=== PATIENT | male | born 1970 | race Caucasian/White ===

== ENCOUNTER → 2021-02-22 07:10 | Outpatient (CLI) | payer BC, SELFPAY ==
[2021-02-22 16:22] LABS: SARS-CoV-2 RNA PCR Negative
== END ==
PROVIDERS: Visit Provider Nurse Practitioner Family
DX: R68.89 Other general symptoms and signs (principal); Z20.822 Contact with and (suspected) exposure to COVID-19
CPT/HCPCS: C9803; U0003; U0005

== ENCOUNTER → 2021-11-03 12:03 | Outpatient (CLI) | payer BC, SELFPAY ==
--- NOTE | ~2021-11-03 | US_ITS ---
US abdomen limited INDICATION: Right upper quadrant pain PROCEDURE: Realtime right upper abdominal ultrasound. COMPARISON: No prior studies for comparison. FINDINGS: The pancreas is normal without focal mass or pancreatic ductal dilation. Liver echotexture is normal without focal mass or intrahepatic biliary dilatation. There are liver cysts measuring up to 1.3 cm. There is normal directional flow in the portal vein. The gallbladder is normal without stones, gallbladder wall thickening or pericholecystic fluid. Comm on bile duct measures 3.7 mm. No sonographic Sher's sign. IMPRESSION: 1: Liver cysts. Reviewed, dictated and finalized at location A. ENT EXAMINER IMPRESSION: 1: Liver cysts.
== END ==
PROVIDERS: PCP Nurse Practitioner Family; Visit Provider Nurse Practitioner Family
DX: R10.11 Right upper quadrant pain (principal); K76.89 Other specified diseases of liver
CPT/HCPCS: 76705

== ENCOUNTER → 2024-01-14 09:09 | Outpatient (CLI) | payer BC, SELFPAY ==
--- NOTE | ~2024-01-14 | CT_ITS ---
EXAMINATION: CT diagnostic chest wo con DATE: 01/14/2024 09:22 INDICATION: Abnormal chest radiograph. Shortness of breath. Pneumonia. TECHNIQUE: Computed tomography (CT) of the chest was performed without intravenous contrast. Automate d exposure control and iterative reconstruction technique were employed. Exam dose: 692.98 mGy-cm to greg exam DLP. COMPARISON: None FINDINGS: There are are two peripheral wedged-shaped areas of atelectasis or consolidation in the pos terior and posteromedial right lung base and discoid atelectasis or scarring in the more anterior asp ect of the right lung base. These are most likely multifocal areas of atelectasis; less likely consid erations include focal areas of pneumonia or pulmonary infarcts. The lungs are otherwise clear. There is old pulmonary granulomatous disease including bilateral calci fied pulmonary granulomas, bilateral calcified hilar and subcarinal lymph nodes. Occasional hepatic a nd splenic calcified granulomas are also noted. No hilar or mediastinal mass lesion or lymphadenopathy. No thoracic aortic aneurysm. Normal heart size. No pericardial or pleural effusion. There are several hepatic cysts, measuring up to 2.8 cm maximal dimension. The gallbladder is present. Normal morphology of the adrenal glands. Included skeletal structures are unremarkable. 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 Reviewed, dictated and finalized at location L. 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
== END ==
PROVIDERS: PCP Nurse Practitioner Family; Visit Provider Nurse Practitioner Family
DX: R93.89 Abnormal findings on diagnostic imaging of other specified body structures (principal); R07.1 Chest pain on breathing
CPT/HCPCS: 71250